=== PATIENT | female | born 1975 | race Caucasian/White ===

== ENCOUNTER 2022-09-02 21:03 | Emergency (ER) | payer OTHER, SELFPAY ==
[2022-09-02 21:22] VITALS: BP 111/75; PULSE 107; RESP 16; TEMP 37; O2SAT 99
--- NOTE | 2022-09-02 21:26 | ECG_ITS ---
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 Measurements Intervals [place] Rate: 104 P: 60 ME: 144 QRS: 31 QRSD: 88 T: -20 QT: 320 QTc: 422 Interpretive Statements SINUS TACHYCARDIA POSSIBLE LEFT ATRIAL ENLARGEMENT [-0.1mV P-WAVE IN V1/V2] POSSIBLE RIGHT VENTRICULAR CONDUCTION DELAY [RSR (QR) IN V1/V2] ST DEVIATION AND MODERATE T-WAVE ABNORMALITY, CONSIDER ANTERIOR ISCHEMIA [-0.1+ mV T-WAVE IN V3/V4] INTERPRETATION BASED ON A DEFAULT AGE OF 40 YEARS No previous ECG available for comparison Electronically Signed On 09-03-2022 11:05:21 HEALTH INSURANCE SPECIALIST by Marshal Mora M.D. [id number]
--- NOTE | 2022-09-02 22:23 | XRR_ITS ---
PROCEDURE INFORMATION: Exam: XR Left Knee Exam date and time: 09/02/2022 11:54 PM Age: 47 years old Clinical indication: Injury or trauma; Fall; Blunt trauma; Knee; Bilateral; Additional info: Trauma/pain, 2 view only TECHNIQUE: Imaging protocol: Radiologic exam of the Left knee. Views: 1 or 2 views. COMPARISON: No relevant prior studies available. FINDINGS: Bones/joints: Surgical hardware in place in the distal femur with likely chronic posttraumatic changes, negative for definite acute fracture or dislocation. Moderate to severe tricompartmental osteoarthritis of the knee. Soft tissues: Normal. XR/XR knee LT 1-2V 15585 IMPRESSION: 1. Surgical hardware in place in the distal femur with likely chronic posttraumatic changes, negative for definite acute fracture or dislocation. 2. Moderate to severe tricompartmental osteoarthritis of the knee.
--- NOTE | 2022-09-02 22:23 | XRR_ITS ---
PROCEDURE INFORMATION: Exam: XR Right Knee Exam date and time: 09/03/2022 12:00 AM Age: 47 years old Clinical indication: Injury or trauma; Fall; Blunt trauma; Knee; Bilateral; Prior surgery; Additional info: Trauma/ pain, 2 view only TECHNIQUE: Imaging protocol: Radiologic exam of the Right knee. Views: 1 or 2 views. COMPARISON: CR (LOW EXM, ) 09/02/2022 11:59 PM FINDINGS: Bones/joints: Surgical hardware seen in the distal femur with chronic post traumatic changes. Surgical hardware in place in the proximal tibia with chronic posttraumatic changes. Moderate to severe tricompartmental osteoarthritis of the knee. Soft tissues: Normal. XR/XR knee RT 1-2V 11716 IMPRESSION: 1. Negative for acute fracture or dislocation. 2. Surgical hardware seen in the distal femur with chronic post traumatic changes. 3. Surgical hardware in place in the proximal tibia with chronic posttraumatic changes. 4. Moderate to severe tricompartmental osteoarthritis of the knee.
--- NOTE | 2022-09-02 22:23 | XRR_ITS ---
PROCEDURE INFORMATION: Exam: XR Right Ankle Exam date and time: 09/02/2022 11:59 PM Age: 47 years old Clinical indication: Injury or trauma; Fall; Blunt trauma; Ankle; Bilateral; Prior surgery; Additional info: Trauma/pain TECHNIQUE: Imaging protocol: Radiologic exam of the Right ankle. Views: 3 or more views. COMPARISON: No relevant prior studies available. FINDINGS: Bones/joints: Chronic posttraumatic changes of the distal fibular metaphysis. Surgical hardware in the distal tibia. Moderate tibiotalar joint osteoarthritis. Soft tissues: Normal. XR/XR ankle RT min 3V* [id number] IMPRESSION: 1. Negative for acute fracture or dislocation. 2. 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 3. Surgical hardware in the distal tibia. 4. Moderate tibiotalar joint osteoarthritis.
--- NOTE | 2022-09-02 22:23 | XRR_ITS ---
PROCEDURE INFORMATION: Exam: XR Left Ankle Exam date and time: 09/02/2022 11:57 PM Age: 47 years old Clinical indication: Injury or trauma; Fall; Blunt trauma; Ankle; Bilateral; Additional info: Trauma/pain TECHNIQUE: Imaging protocol: Radiologic exam of the Left ankle. Views: 3 or more views. COMPARISON: CR (LOW EXM, ) 09/02/2022 11:54 PM FINDINGS: Bones/joints: Normal. Soft tissues: Normal. XR/XR ankle LT min 3V* [id number] IMPRESSION: No acute findings.
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
[2022-09-02] MEDS: ketorolac 60 mg/2 mL INJ IM (23:37)
[2022-09-03 00:59] VITALS: RESP 16
== END 2022-09-03 00:55 | disposition home or self-care (01) ==
PROVIDERS: Emergency Provider Nurse Practitioner
DX: M79.605 Pain in left leg (principal); M79.604 Pain in right leg
CPT/HCPCS: 73560; 73610; 93005; 96372; 99285; J1885